=== PATIENT | female | born 1990 | race Caucasian/White ===

== ENCOUNTER → 2017-08-29 | Outpatient (CLI) | payer OTHER | LOC: M SMT 11:43 | DX: R06.00 Dyspnea, unspecified (principal) | CPT/HCPCS: 71046 ==

== ENCOUNTER → 2017-10-17 | Outpatient (CLI) | payer OTHER ==
[~2017-10-17] MED LIST: METHACHOLINE KIT (J7674) INH
== END ==
LOC: M CARPUL 14:29
DX: R06.00 Dyspnea, unspecified (principal)
CPT/HCPCS: J7674

== ENCOUNTER → 2018-08-19 | Outpatient (CLI) | payer OTHER ==
--- NOTE | 2018-08-19 16:10 | REP ---
Right ankle four views: There is a nondisplaced fracture at the base of the fifth digit metatarsal. There is no other fracture or dislocation. Skeletal soft tissue structures otherwise are unremarkable. Electronically Signed by Bobo Ansari MD 08/19/2018 04:02 P
--- NOTE | 2018-08-19 16:11 | REP ---
Right foot four views: There is a nondisplaced fracture at the base of the fifth digit metatarsal. There is no dislocation. Mineralization and joint spaces are otherwise unremarkable. No foreign bodies or calcifications per Impression: Nondisplaced fracture the base of the fifth digit metatarsal. Electronically Signed by Bobo Ansari MD 08/19/2018 04:03 P
== END ==
LOC: M LRY 15:27
PROVIDERS: ATTEND Physician Assistant
DX: S92.354A Nondisplaced fracture of fifth metatarsal bone, right foot, initial encounter for closed fracture (principal); X58.XXXA Exposure to other specified factors, initial encounter; Y92.89 Other specified places as the place of occurrence of the external cause
CPT/HCPCS: 29515; 73610; 73630; G0463